=== PATIENT | female | born 1960 | race Caucasian/White ===

== ENCOUNTER 2017-02-04 08:55 | Day surgery (SDC) | payer BC, SELFPAY | END 2017-02-04 11:53 | disposition home or self-care (01) | PROVIDERS: Family Provider Internal Medicine; Visit Provider Internal Medicine Gastroenterology | DX: K22.4 Dyskinesia of esophagus; J39.2 Other diseases of pharynx; K21.9 Gastro-esophageal reflux disease without esophagitis; Z80.0 Family history of malignant neoplasm of digestive organs; Z98.84 Bariatric surgery status | CPT/HCPCS: 43239; 43249; 99152; C1726 ==